=== PATIENT | male | born 1950 | race African-American/Black ===

== ENCOUNTER 2019-10-14 13:06 | Emergency (ER) | payer OTHER ==
[2019-10-14 13:48] VITALS: BMI 40.1
--- NOTE | 2019-10-14 13:58 | PDOC ---
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 Pt was supposed to change dressings regularly and follow up with PET scans to evaluate for metastasis. Hx primarily obtained from family members. Mass on right leg has been getting bigger and pt. has complained of increased pain. He has stopped eating over the last few days, refused to change his wound dressings and has been soiling himself. Pt. was able to ambulate before sudden deterioration this weak. He was also found on the floor 3 days ago. Per family, he has been denying car and doctors advice to get evaluate. Was brought in by EMS today. Past History - Past Medical History Allergies/Adverse Reactions: Allergies Allergy/AdvReac Type Severity Reaction Status Date / Time No Known Allergies Allergy Verified 10/14/19 14:47 Home Medications: Ambulatory Orders Bromelains 500 mg PO DAILY 10/14/19 Calcitriol [Rocaltrol -] 0.25 mcg PO DAILY 10/14/19 Ibuprofen 600 mg PO TID 10/14/19 Levothyroxine Sodium [Levo-T] 150 mcg PO DAILY 10/14/19 - Psycho Social/Smoking Cessation Hx Smoking History: Unknown if ever smoked Review of Systems - Review of Systems Constitutional: Yes: Chills. No: Fever HEENTM: No: Eye Pain, Blurred Vision Respiratory: Yes: Cough. No: Shortness of Breath Cardiac (ROS): No: Chest Pain, Palpitations ABD/GI: No: Blood Streaked Bowels, Vomiting *Physical Exam - Vital Signs Last Vital Signs Temp Pulse Resp BP Pulse Ox 97.4 F L 72 19 110/66 96 10/14/19 13:10 10/14/19 13:10 10/14/19 13:10 10/14/19 13:10 10/14/19 13:10 - Physical Exam 10/14/19 16:11 PE: GENERAL: Awake, alert, AO x 2 (person and place only) HEAD: No signs of trauma, normocephalic, atraumatic EYES: EOMI, sclera anicteric, conjunctiva clear ENT: Auricles normal inspection, hearing grossly normal, nares patent, oropharynx clear without exudates. Moist mucosa NECK: Normal ROM, supple, no lymphadenopathy, JVD, or masses LUNGS: No distress, speaks full sentences, clear to auscultation bilaterally HEART: Regular rate and rhythm, normal S1 and S2, no murmurs, rubs or gallops, ABDOMEN: Soft, nontender, normoactive bowel sounds. No guarding, no rebound. No masses EXTREMITIES : swollen edematous right leg up to pelvis. mass on anterior right thigh with wound site that was stapled. draining serosanguinous fluid jina at wound site in tact. 3+ pitting edema up to groin. delayed capillary refill (4s) right leg. pulses difficult to appreciate due to edema NEUROLOGICAL: Cranial nerves II through XII grossly intact. Sluggish/slow speech, slow to follow commands seems weak. SKIN: looks pale. 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 Pt altered from baseline and weak bedbound when he could ambulate previously cbc, cmp, ua, lactic acid, wound culture, chest x-ray soft tissue u/s lower extremity CT Labs remarkable for elevated white count 32.3 lactic acid 3.3 cmp hemolyzed, re-order. 10/14/19 16:33 10/14/19 16:38 there will be delay in lower extremity CT due to hemolyzed CMP 10/14/19 17:35 Extremity U/S no discrete abscess is identified large right thigh soft tissue lesion 10/14/19 17:[address] Rohan rankin pt's surgical oncologist at [facility] updated on patients condition and interventions so far Accepts patient for further management at [facility] transfer center number: [phone] Transfer center contacted and patient set up for transfer 10/14/19 19:[address] no acute intracranial hemorrhage Labs were significant for elevated K+ 6.4 and creatinine of 3.5 the following ordered Calcium gluconate 1000mg IV 1 amp of bicarb 8 units of insulin bolus 1 amp of D50 10/14/19 19:24 Pt signed out to Dr. Leos.will follow up on interventions and transfer to [facility] Discharge - Discharge Information Problems reviewed: Yes Clinical Impression/Diagnosis: Sarcoma Sepsis Qualifiers: Sepsis type: sepsis due to unspecified organism Sepsis acute organ dysfunction status: without acute organ dysfunction Qualified Code(s): A41.9 - Sepsis, unspecified organism Condition: Stable Disposition: TRANSFER ACUTE CARE/OTHER HOSP - Follow up/Referral - Patient Discharge Instructions - Post Discharge Activity Work/Back to School Note: Parent(s) Back to Work Note - Transfer to Acute Care Facility Receiving Facility Name: [facility] ([facility]) [address] [facility] [place] [address]
[2019-10-14] MEDS ORDERED: SODIUM CHLORIDE 0.9% 500 ML INFUS.BAG IV ONE ×2 (14:44→22:36)
[2019-10-14 15:38] LABS: VENOUS PC02 37.1 mmHg (38-52); VENOUS PH 7.38 (7.31-7.41)
[2019-10-14 15:40] LABS: VENOUS PO2 < 49 mmHg (28-48)
[2019-10-14 15:47] LABS: BASO % 0.3 % (0-2.0); EOS % 0.5 % (0-4.5); HEMATOCRIT 34.3 % (35.4-49); HEMOGLOBIN 10.9 GM/dL (11.7-16.9); LYMPH % 1.9 % (8-40); MCH 25.5 pg (25.7-33.7); MCHC 31.9 g/dl (32.0-35.9); MEAN CELL VOLUME 79.9 fl (80-96); MEAN PLT VOLUME 8.5 fl (7.5-11.1); MONO % 12.5 % (3.8-10.2); NEUT % 84.8 % (42.8-82.8); PLATELET COUNT 528 K/MM3 (134-434); RBC 4.29 M/mm3 (4.00-5.60); RDW 18.7 % (11.9-15.9)
[2019-10-14 15:50] LABS: EPI CELLS 4.6 /HPF (0-5/HPF); URINE APPEARANCE CLOUDY; URINE BACTERIA 1.2 /hpf (NEGATIVE); URINE BILIRUBIN 1+ (NEGATIVE); URINE COLOR DK YELLOW; URINE GLUCOSE (UA) NEGATIVE (NEGATIVE); URINE KETONE TRACE (NEGATIVE); URINE LEUK ESTERASE TRACE (NEGATIVE); URINE NITRITE NEGATIVE (NEGATIVE); URINE PROTEIN NEGATIVE (NEGATIVE); URINE RBC 0 /hpf (0-4); URINE WBC 0 /hpf (0-5)
[2019-10-14 15:52] LABS: WHITE BLOOD COUNT 32.8 K/mm3 (4.0-10.0)
[2019-10-14 16:03] LABS: INR 1.19 (0.83-1.09); PROTHROMBIN TIME (PATIENT) 14.1 SEC (9.7-13.0)
[2019-10-14 16:06] LABS: ACTIVATED PTT 27.1 SECONDS (25.2-36.5)
[2019-10-14] MEDS ORDERED: PIPERACILLIN/TAZOB 4.5 GM 4.5 GM in DEXTROSE 5%-WATER 100 ML IVPB ONE (16:12)
[2019-10-14] MEDS ORDERED: VANCOMYCIN 1,000 MG in DEXTROSE 5%-WATER - 250 ML IVPB ONE (16:12)
[2019-10-14 16:30] LABS: ANISOCYTOSIS 1+
[2019-10-14 16:31] LABS: PLATELET ESTIMATE INCREASED; TARGET CELLS FEW
[2019-10-14 17:01] LABS: HYALINE CASTS NONE SEEN /lpf (0-8)
[2019-10-14] MEDS ORDERED: VANCOMYCIN 1 GRAM (PRE-DOCKED) 1,000 MG/250 ML BAG IVPB ONE (17:13)
[2019-10-14] MEDS ORDERED: PIPERACILLIN/TAZOB 4.5 GM 4.5 GM/100 ML BAG IVPB ONE (17:13)
--- NOTE | 2019-10-14 17:17 | PDOC ---
Documentation entered by Solo Morrow SCRIBE, acting as scribe for Sina Rubio MD. iSna Rubio MD: This documentation has been prepared by the Cristhian kang Daniel, SCRIBE, under my direction and personally reviewed by me in its entirety. I confirm that the documentation accurately reflects all work, treatment, procedures, and medical decision making performed by me. Attending Attestation - Resident Resident Name: KmgaryRobin - ED Attending Attestation I have performed the following: I have examined & evaluated the patient, The case was reviewed & discussed with the resident, I agree w/resident's findings & plan, Exceptions are as noted - HPI HPI: 10/14/19 16:11 69-year-old gentleman history of recently hyphyroidism, diagnosed sarcoma status post biopsy complicated by collection versus abscess. Family brought the patient in as the patient has been more confused for the last 3 days - Physicial Exam PE: 10/16/19 09:35 see above - Medical Decision Making 10/14/19 15:31 69y M hx of sarcoma s/p biopsy recently presens with complaint of AMS, decread oral inake, for the psat 3 days. Family also notes that his mass in the thigh has been gradually enlarging. There is been no noted fever or chills, significant chest pain, headache, dizziness, abdominal pain, nausea, vomiting. Family notes the patient has been eating much less than usual. Patient is alert however he is very sluggish to answer and appears very pale. no focal neuro exam findings GENERAL: The patient is awake, alert, and oriented x1, no acute distress HEAD: Normocephalic, atraumatic. EYES: extraocular movements intact, sclera anicteric, conjunctiva pale ENT: Normal voice, dry mucous membranes. NECK: Normal range of motion, supple LUNGS: Breath sounds equal, clear to auscultation bilaterally. No wheezes, no rhonchi, no rales. HEART: Regular rate and rhythm, normal S1 and S2 without murmur, rub or gallop. ABDOMEN: Soft, nontender, No guarding, no rebound. No CVA tenderness EXTREMITIES: Very large mass in the right thigh, jina in place, some clear yellowish discharge expressible when the mass is pressed -there is no significant erythema, induration, warmth. Right lower extremity reveals pitting edema. NEUROLOGICAL: No facial assymetry, Normal speech, moving all 4 extremities spontaneously and symmetrically PSYCH: Normal mood, normal affect. SKIN: Warm, Dry, normal turgor, Differential for the patient's symptoms is large includes infectious/abscess, metabolic derangements, anemia Will give fluids for hydration We will obtain ultrasound to rule out DVT Anticipate CT to further evaluate the leg mass 10/14/19 16:31 case signed out to evening team awaiting ct results, but anticipate transfer to [facility] for further evaluate of his expanding leg mass
[2019-10-14 17:47] VITALS: TEMP 98
[2019-10-14 18:26] LABS: ALBUMIN 1.4 g/dl (3.4-5.0); BILIRUBIN,TOTAL 0.8 mg/dL (0.2-1); CALCIUM 8.2 mg/dL (8.5-10.1); CREATININE 3.5 mg/dL (0.55-1.3); TOT PROT 6.6 g/dl (6.4-8.2)
[2019-10-14 18:32] LABS: BLOOD UREA NITROGEN 107.4 mg/dL (7-18); POTASSIUM 6.4 mmol/L (3.5-5.1)
[2019-10-14] MEDS ORDERED: SODIUM CHLORIDE IVPB SCH (18:45)
[2019-10-14] MEDS ORDERED: INSULIN REGULAR IVPB SCH (18:45)
[2019-10-14] MEDS ORDERED: DEXTROSE 50%-WATER - 25 GM/50 ML VIAL IVPUSH ONE ×2 (18:45→22:37)
[2019-10-14] MEDS ORDERED: CALCIUM GLUCONATE 10% - 1,000 MG/10 ML VIAL IVPB ONE (18:47)
[2019-10-14] MEDS ORDERED: SODIUM BICARBONATE 8.4% 50 MEQ/50 ML VIAL IV ONE (18:47)
[2019-10-14] MEDS ORDERED: CALCIUM GLUCONATE 10% - 1,000 MG/10 ML VIAL ONE (19:05)
[2019-10-14] MEDS ORDERED: INSULIN REGULAR HUMAN 100 UNITS/ML *VIAL ONE (19:05)
[2019-10-14] MEDS ORDERED: SODIUM BICARBONATE 8.4% 50 MEQ/50 ML VIAL ONE ×2 (19:06→19:10)
[2019-10-14] MEDS ORDERED: DEXTROSE 50%-WATER 25 GM/50 ML DISP.SYRIN ONE ×2 (19:06→23:14)
--- NOTE | 2019-10-14 19:17 | PDOC ---
*Physical Exam - Vital Signs Last Vital Signs Temp Pulse Resp BP Pulse Ox 98 F 66 19 110/64 96 10/14/19 17:47 10/14/19 17:47 10/14/19 17:47 10/14/19 17:47 10/14/19 13:10 ED Treatment Course - LABORATORY CBC & Chemistry Diagram: 10/14/19 15:17 10/14/19 21:35 - ADDITIONAL ORDERS Additional order review: Laboratory Results 10/14/19 10/14/19 10/14/19 17:45 17:43 15:17 PT with INR INR PTT (Actin FS) VBG pH 7.38 POC VBG pCO2 37.1 L POC VBG pO2 < 49 H VBG HCO3 21.4 L VBG O2 Sat (Zuleika) 17.7 L VBG Base Excess -2.8 L Sodium 132 L Potassium 6.4 H* Chloride 99 Carbon Dioxide 21 Anion Gap 13 BUN 107.4 H* Creatinine 3.5 H Est GFR (CKD-EPI)AfAm 19.35 Est GFR (CKD-EPI)NonAf 16.69 Random Glucose 135 H Lactic Acid 3.3 H* Calcium 8.2 L Total Bilirubin 0.8 AST 70 H ALT 41 Alkaline Phosphatase 112 Total Protein 6.6 Albumin 1.4 L TSH Urine Color Urine Appearance Urine pH Ur Specific [place] Urine Protein Urine Glucose (UA) Urine Ketones Urine Blood Urine Nitrite Urine Bilirubin Urine Urobilinogen Ur Leukocyte Esterase Urine WBC (Auto) Urine RBC (Auto) Urine Casts (Auto) U Pathogenic Cast Auto U Epithel Cells (Auto) Urine Bacteria (Auto) 10/14/19 10/14/19 10/14/19 15:17 15:17 15:17 PT with INR INR PTT (Actin FS) VBG pH POC VBG pCO2 POC VBG pO2 VBG HCO3 VBG O2 Sat (Zuleika) VBG Base Excess Sodium Potassium Chloride Carbon Dioxide Anion Gap BUN Creatinine Est GFR (CKD-EPI)AfAm Est GFR (CKD-EPI)NonAf Random Glucose Lactic Acid 3.3 H* Calcium Total Bilirubin AST ALT Alkaline Phosphatase Total Protein Albumin TSH 4.26 H Urine Color Dk yellow Urine Appearance Cloudy Urine pH 5.0 Ur Specific [place] 1.018 Urine Protein Negative Urine Glucose (UA) Negative Urine Ketones Trace H Urine Blood Negative Urine Nitrite Negative Urine Bilirubin 1+ H Urine Urobilinogen 1.0 Ur Leukocyte Esterase Trace Urine WBC (Auto) 0 Urine RBC (Auto) 0 Urine Casts (Auto) None seen U Pathogenic Cast Auto None seen U Epithel Cells (Auto) 4.6 Urine Bacteria (Auto) 1.2 10/14/19 10/14/19 15:17 15:17 PT with INR 14.10 H INR 1.19 H PTT (Actin FS) 27.1 VBG pH POC VBG pCO2 POC VBG pO2 VBG HCO3 VBG O2 Sat (Zuleika) VBG Base Excess Sodium Cancelled Potassium Cancelled Chloride Cancelled Carbon Dioxide Cancelled Anion Gap Cancelled BUN Cancelled Creatinine Cancelled Est GFR (CKD-EPI)AfAm Cancelled Est GFR (CKD-EPI)NonAf Cancelled Random Glucose Cancelled Lactic Acid Calcium Cancelled Total Bilirubin Cancelled AST Cancelled ALT Cancelled Alkaline Phosphatase Cancelled Total Protein Cancelled Albumin Cancelled TSH Urine Color Urine Appearance Urine pH Ur Specific [place] Urine Protein Urine Glucose (UA) Urine Ketones Urine Blood Urine Nitrite Urine Bilirubin Urine Urobilinogen Ur Leukocyte Esterase Urine WBC (Auto) Urine RBC (Auto) Urine Casts (Auto) U Pathogenic Cast Auto U Epithel Cells (Auto) Urine Bacteria (Auto) 10/14/19 15:17 RBC 4.29 MCV 79.9 L MCHC 31.9 L RDW 18.7 H MPV 8.5 Neutrophils % 84.8 H Lymphocytes % 1.9 L Monocytes % 12.5 H Eosinophils % 0.5 Basophils % 0.3 - Medications Given in the ED: ED Medications Discontinued Medications Generic Name Dose Route Start Last Admin Trade Name Freq PRN Reason Stop Dose Admin Vancomycin HCl 1,000 mg/ 250 mls @ 250 mls/hr 10/14/19 16:12 10/14/19 17:41 Dextrose IVPB 10/14/19 17:11 250 mls/hr ONCE ONE Administration Protocol Piperacillin Sod/Tazobactam 100 mls @ 200 mls/hr 10/14/19 16:12 10/14/19 17: 27 Sod 4.5 gm/ Dextrose IVPB 10/14/19 16:41 200 mls/hr ONCE ONE Administration Protocol Sodium Chloride 1,000 ml 10/14/19 14:44 10/14/19 17:27 Normal Saline - IV 10/14/19 14:45 1,000 ml ONCE ONE Administration Medical Decision Making - Medical Decision Making 10/14/19 19:[address] Cole. Will ensure medications for high potassium are administered, get EKG, ensure transfer. 10/14/19 19:32 EKG normal sinus at 99 bpm, no peaked T waves, ST depressions in V5 and V6. No previous EKG. 10/14/19 22:35 Repeat K 6.2 from 6.4. Will give 8 more units of insulin with D50, another liter of NS. 10/15/19 00:15 Patient with heart rate in the 110s, appears to now be in afib. Will get an EKG to confirm. Discharge - Discharge Information Problems reviewed: Yes Clinical Impression/Diagnosis: Sarcoma, Acute renal failure, Hyperkalemia Sepsis Qualifiers: Sepsis type: sepsis due to unspecified organism Sepsis acute organ dysfunction status: without acute organ dysfunction Qualified Code(s): A41.9 - Sepsis, unspecified organism Condition: Stable Disposition: TRANSFER ACUTE CARE/OTHER HOSP - Follow up/Referral - Patient Discharge Instructions - Post Discharge Activity Work/Back to School Note: Back to Work, Parent(s) Back to Work Note
[2019-10-14 22:32] LABS: ALBUMIN 1.5 g/dl (3.4-5.0); BILIRUBIN,TOTAL 0.9 mg/dL (0.2-1); CALCIUM 8.1 mg/dL (8.5-10.1); CREATININE 3.6 mg/dL (0.55-1.3)
[2019-10-14 22:34] LABS: BLOOD UREA NITROGEN 111.5 mg/dL (7-18); POTASSIUM 6.2 mmol/L (3.5-5.1)
[2019-10-14] MEDS ORDERED: INSULIN REGULAR HUMAN 100 UNITS/ML *VIAL IVPUSH ONE (22:38)
--- NOTE | 2019-10-14 22:54 | PDOC ---
*Physical Exam - Vital Signs Last Vital Signs Temp Pulse Resp BP Pulse Ox 98 F 66 19 110/64 96 10/14/19 17:47 10/14/19 17:47 10/14/19 17:47 10/14/19 17:47 10/14/19 13:10 Repeat PE for Septic Shock - Vital Signs Vital Signs: Vital Signs Temperature 98 F 10/14/19 17:47 Pulse Rate 66 10/14/19 17:47 Respiratory Rate 19 10/14/19 17:47 Blood Pressure 110/64 10/14/19 17:47 O2 Sat by Pulse Oximetry (%) 96 10/14/19 13:10 I have reviewed the most recent vital signs: Yes - PE CV for Spetic Shock: Regular Rhythm, Regular Rate Lungs: Lungs Clear, Normal Breath Sounds Vascular: Left Radial: 1+, Right Radial: 1+ Capillary Refill: >3 seconds Skin exam: Other (edema bilat lower ext, right inner thigh abscess, wound draining purulence. ) - Impression Impression: Vasopressors not indicated, pt still hypovolemic (making urine, dick placed. continue IV hydration.) ED Treatment Course - LABORATORY CBC & Chemistry Diagram: 10/14/19 15:17 10/14/19 21:35 - ADDITIONAL ORDERS Additional order review: Laboratory Results 10/14/19 10/14/19 10/14/19 21:35 17:45 17:43 PT with INR INR PTT (Actin FS) VBG pH POC VBG pCO2 POC VBG pO2 VBG HCO3 VBG O2 Sat (Zuleika) VBG Base Excess Sodium 132 L 132 L Potassium 6.2 H* 6.4 H* Chloride 99 99 Carbon Dioxide 21 21 Anion Gap 12 13 BUN 111.5 H* 107.4 H* Creatinine 3.6 H 3.5 H Est GFR (CKD-EPI)AfAm 18.70 19.35 Est GFR (CKD-EPI)NonAf 16.14 16.69 Random Glucose 128 H 135 H Lactic Acid 3.3 H* Calcium 8.1 L 8.2 L Total Bilirubin 0.9 0.8 AST 92 H 70 H ALT 54 41 Alkaline Phosphatase 125 H 112 Total Protein 7.0 6.6 Albumin 1.5 L 1.4 L TSH Urine Color Urine Appearance Urine pH Ur Specific [place] Urine Protein Urine Glucose (UA) Urine Ketones Urine Blood Urine Nitrite Urine Bilirubin Urine Urobilinogen Ur Leukocyte Esterase Urine WBC (Auto) Urine RBC (Auto) Urine Casts (Auto) U Pathogenic Cast Auto U Epithel Cells (Auto) Urine Bacteria (Auto) 10/14/19 10/14/19 10/14/19 15:17 15:17 15:17 PT with INR INR PTT (Actin FS) VBG pH 7.38 POC VBG pCO2 37.1 L POC VBG pO2 < 49 H VBG HCO3 21.4 L VBG O2 Sat (Zuleika) 17.7 L VBG Base Excess -2.8 L Sodium Potassium Chloride Carbon Dioxide Anion Gap BUN Creatinine Est GFR (CKD-EPI)AfAm Est GFR (CKD-EPI)NonAf Random Glucose Lactic Acid 3.3 H* Calcium Total Bilirubin AST ALT Alkaline Phosphatase Total Protein Albumin TSH Urine Color Dk yellow Urine Appearance Cloudy Urine pH 5.0 Ur Specific [place] 1.018 Urine Protein Negative Urine Glucose (UA) Negative Urine Ketones Trace H Urine Blood Negative Urine Nitrite Negative Urine Bilirubin 1+ H Urine Urobilinogen 1.0 Ur Leukocyte Esterase Trace Urine WBC (Auto) 0 Urine RBC (Auto) 0 Urine Casts (Auto) None seen U Pathogenic Cast Auto None seen U Epithel Cells (Auto) 4.6 Urine Bacteria (Auto) 1.2 10/14/19 10/14/19 10/14/19 15:17 15:17 15:17 PT with INR 14.10 H INR 1.19 H PTT (Actin FS) 27.1 VBG pH POC VBG pCO2 POC VBG pO2 VBG HCO3 VBG O2 Sat (Zuleika) VBG Base Excess Sodium Cancelled Potassium Cancelled Chloride Cancelled Carbon Dioxide Cancelled Anion Gap Cancelled BUN Cancelled Creatinine Cancelled Est GFR (CKD-EPI)AfAm Cancelled Est GFR (CKD-EPI)NonAf Cancelled Random Glucose Cancelled Lactic Acid Calcium Cancelled Total Bilirubin Cancelled AST Cancelled ALT Cancelled Alkaline Phosphatase Cancelled Total Protein Cancelled Albumin Cancelled TSH 4.26 H Urine Color Urine Appearance Urine pH Ur Specific [place] Urine Protein Urine Glucose (UA) Urine Ketones Urine Blood Urine Nitrite Urine Bilirubin Urine Urobilinogen Ur Leukocyte Esterase Urine WBC (Auto) Urine RBC (Auto) Urine Casts (Auto) U Pathogenic Cast Auto U Epithel Cells (Auto) Urine Bacteria (Auto) 10/14/19 15:17 RBC 4.29 MCV 79.9 L MCHC 31.9 L RDW 18.7 H MPV 8.5 Neutrophils % 84.8 H Lymphocytes % 1.9 L Monocytes % 12.5 H Eosinophils % 0.5 Basophils % 0.3 - Medications Given in the ED: ED Medications Discontinued Medications Generic Name Dose Route Start Last Admin Trade Name Tyra PRN Reason Stop Dose Admin Calcium Gluconate 1,000 mg 10/14/19 18:47 10/14/19 19:56 Calcium Gluconate 10% - IVPB 10/14/19 18:48 Not Given ONCE ONE Dextrose 25 gm 10/14/19 18:45 10/14/19 19:55 D50w (Vial) - IVPUSH 10/14/19 18:46 25 gm NOW ONE Administration Vancomycin HCl 1,000 mg/ 250 mls @ 250 mls/hr 10/14/19 16:12 10/14/19 17:41 Dextrose IVPB 10/14/19 17:11 250 mls/hr ONCE ONE Administration Protocol Piperacillin Sod/Tazobactam 100 mls @ 200 mls/hr 10/14/19 16:12 10/14/19 17: 27 Sod 4.5 gm/ Dextrose IVPB 10/14/19 16:41 200 mls/hr ONCE ONE Administration Protocol Sodium Bicarbonate 50 meq 10/14/19 18:47 10/14/19 19:56 Sodium Bicarbonate 8.4% - IV 10/14/19 18:48 50 meq ONCE ONE Administration Sodium Chloride 1,000 ml 10/14/19 14:44 10/14/19 17:27 Normal Saline - IV 10/14/19 14:45 1,000 ml ONCE ONE Administration Medical Decision Making - Medical Decision Making 10/14/19 22:48 69 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 AMS . pt has had increased confusion, AMS and lethargy , decreased po intake. signed out to me pending transfer to [facility]. case was discussed with surgical oncologist Rohan rankin, who accepted .pt found to be in renal failure wiht creatinine of 3, and potassium 6.2 ws given insulin kaexylat and dextrose calcium and bicarb. d/w transfer center regarding need for ICU vs. stepdown. on my exam pt with purulence drainin from right thigh wound. will given second round of kaexylate rectally, ivf, insulin and dextrose. updated dr rankin regarding renal failure and high potassium recommend repeat dosing and transfer for difiniive source control of pt sepsis. 10/15/19 01:10 pt given 3rd L NS bolus. hR came up to 125, with tylenol and IVF came down to 99. bp 107/65. empress present to transfer patient. Discharge - Discharge Information Problems reviewed: Yes Clinical Impression/Diagnosis: Sarcoma, Acute renal failure, Hyperkalemia Sepsis Qualifiers: Sepsis type: sepsis due to unspecified organism Sepsis acute organ dysfunction status: without acute organ dysfunction Qualified Code(s): A41.9 - Sepsis, unspecified organism Condition: Stable Disposition: TRANSFER ACUTE CARE/OTHER HOSP - Follow up/Referral - Patient Discharge Instructions - Post Discharge Activity Work/Back to School Note: Back to Work, Parent(s) Back to Work Note
[2019-10-14] MEDS ORDERED: SODIUM POLYSTYRENE SULFONATE 15 GM/60 ML BOTTLE PO ONE (22:55)
[2019-10-14] MEDS ORDERED: ALBUTEROL SO4 2.5/IPRATROPIUM 0.5 INH SOL 3 ML VIAL.NEB. NEB ONE (23:01)
[2019-10-14] MEDS ORDERED: SODIUM POLYSTYRENE SULFONATE 15 GM/60 ML BOTTLE ONE (23:14)
[2019-10-15] MEDS ORDERED: CALCIUM GLUCONATE 10% - 1,000 MG/10 ML VIAL ONE (00:18)
[2019-10-15] MEDS ORDERED: SODIUM BICARBONATE 8.4% 50 MEQ/50 ML VIAL ONE (00:21)
[2019-10-15] MEDS ORDERED: SODIUM BICARBONATE 8.4% 50 MEQ/50 ML VIAL IV ONE (00:21)
[2019-10-15] MEDS ORDERED: ACETAMINOPHEN 1000 MG/100 ML VIAL (NON FORMULARY) IVPB ONE (00:26)
[2019-10-15] MEDS ORDERED: ACETAMINOPHEN INJECTION 100 ML IVPB ONE (00:30)
[2019-10-15] MEDS ORDERED: CALCIUM GLUCONATE 10% - 1,000 MG/10 ML VIAL IVPUSH ONE (00:32)
[2019-10-15 01:35] VITALS: BP 107/61; PULSE 106
--- NOTE | 2019-10-15 11:37 | EKG ---
Test Reason : Blood Pressure : / mmHG Vent. Rate : 120 BPM Atrial Rate : 120 BPM P-R Int : 182 ms QRS Dur : 094 ms QT Int : 334 ms P-R-T Axes : 038 000 030 degrees QTc Int : 472 ms SINUS TACHYCARDIA WITH PREMATURE ATRIAL COMPLEXES NONSPECIFIC ST ABNORMALITY WHEN COMPARED WITH ECG OF 14-OCT-2019 19:28, NO SIGNIFICANT CHANGE WAS FOUND Confirmed by NICOLE MEZA MD ([id number]) on 10/15/2019 11:37:20 AM Referred By: Confirmed By:NICOLE MEZA MD
--- NOTE | 2019-10-15 11:43 | EKG ---
Test Reason : Blood Pressure : / mmHG Vent. Rate : 099 BPM Atrial Rate : 099 BPM P-R Int : 172 ms QRS Dur : 094 ms QT Int : 404 ms P-R-T Axes : 030 000 047 degrees QTc Int : 518 ms SINUS RHYTHM WITH PREMATURE ATRIAL COMPLEXES POSSIBLE ANTERIOR INFARCT , AGE UNDETERMINED PROLONGED QT ABNORMAL ECG NO PREVIOUS ECGS AVAILABLE Confirmed by NICOLE MEZA MD ([id number]) on 10/15/2019 11:43:02 AM Referred By: Confirmed By:NICOLE MEZA MD
== END 2019-10-15 01:26 | disposition short-term general hospital (02) ==
LOC: JER 13:06
PROC: 3E03329 Introduction of Other Anti-infective into Peripheral Vein, Percutaneous Approach (ICD-10-PCS; principal; 2019-10-14)
PROC: 3E033GC Introduction of Other Therapeutic Substance into Peripheral Vein, Percutaneous Approach (ICD-10-PCS; 2019-10-14)
PROC: 3E0337Z Introduction of Electrolytic and Water Balance Substance into Peripheral Vein, Percutaneous Approach (ICD-10-PCS; 2019-10-14)
PROC: 3E033VG Introduction of Insulin into Peripheral Vein, Percutaneous Approach (ICD-10-PCS; 2019-10-14)
DX: A41.9 Sepsis, unspecified organism (principal)
CPT/HCPCS: 36415; 70450-TC; 71045-TC-FY; 76882-TC-RT-FY; 80053; 81003; 82803; 83605; 84443; 85025; 85610; 85730; 87040; 87070; 87086; 87186; 87205; 93005; 93010; 99285-25; J0131